=== PATIENT | male | born 1990 | race Caucasian/White ===

== ENCOUNTER → 2021-06-18 | Outpatient (CLI) | payer OTHER | LOC: HEART 5 06-12 11:00 → ECHO 13:03 | DX: R07.9 Chest pain, unspecified (principal); R00.2 Palpitations; I07.1 Rheumatic tricuspid insufficiency; I51.7 Cardiomegaly | CPT/HCPCS: ECHO; 93017; 93270; 93306 ==

== ENCOUNTER → 2022-03-17 | Outpatient (CLI) | payer OTHER | LOC: NM 13:34 | DX: R10.11 Right upper quadrant pain (principal); R19.7 Diarrhea, unspecified; R11.0 Nausea | CPT/HCPCS: 78226; A9537 ==